=== PATIENT | female | born 1960 | race Caucasian/White ===

== ENCOUNTER 2021-03-06 06:29 | Day surgery (SDC) | payer MEDICARE, MEDICAID ==
[~2021-03-06] VITALS: Ht 175.3 cm; Wt 84.5 kg
[2021-03-06] MEDS ORDERED: LIDOCAINE 2% 30 ML JELLY TP ONE (06:30)
[2021-03-06] MEDS ORDERED: ALBUTEROL SULFATE 2.5 MG/0.5 ML NEB SOLUTION NEB ONE (06:30)
[2021-03-06] MEDS ORDERED: BENZOCAINE 20% 50 MCG/SPRAY 57 GM TP ONE (06:30)
[2021-03-06] MEDS ORDERED: LIDOCAINE 4% 50 ML SOLUTION TP ONE (06:30)
[2021-03-06] MEDS ORDERED: SODIUM CHLORIDE 0.9% 1,000 ML ONE (07:07)
[2021-03-06 07:09] LABS: COVID AG,FIA SOURCE NASOPHARYNGEAL
[2021-03-06] MEDS ORDERED: SODIUM CHLORIDE 0.9% 1,000 ML IV ONE (07:30)
[2021-03-06] MEDS ORDERED: HYDR-4031 PO (08:33)
[2021-03-06] MEDS ORDERED: MEMA5 PO (08:33)
[2021-03-06] MEDS ORDERED: DULO60CA98 PO (08:33)
[2021-03-06] MEDS ORDERED: BUPR100SR PO (08:33)
[2021-03-06] MEDS ORDERED: MONT-35 PO (08:33)
[2021-03-06] MEDS ORDERED: BENZ1TAB10 PO (08:33)
[2021-03-06] MEDS ORDERED: FAMO20 PO (08:33)
[2021-03-06] MEDS ORDERED: LITH300CRT PO (08:33)
[2021-03-06] MEDS ORDERED: FentaNYL CITRATE PF 100 MCG/2 ML VIAL ONE (09:27)
[2021-03-06] MEDS ORDERED: MIDAZOLAM HCL 5 MG/ML VIAL ONE (09:28)
[2021-03-06] MEDS ORDERED: MethylPREDNISolone SOD SUCC 125 MG/2 ML VIAL ONE (09:41)
[2021-03-06] MEDS ORDERED: MethylPREDNISolone SOD SUCC 125 MG/2 ML VIAL IVP ONE (10:15)
[2021-03-06] MEDS ORDERED: OXYGEN THERAPY IH SCH (20:00)
== END 2021-03-06 12:20 | disposition home or self-care (01) ==
LOC: SURGERY 06:29
PROVIDERS: ATTEND Internal Medicine Critical Care Medicine
DX: J38.4 Edema of larynx (principal); B37.0 Candidal stomatitis; J43.9 Emphysema, unspecified; Z88.0 Allergy status to penicillin; Z90.81 Acquired absence of spleen; Z79.899 Other long term (current) drug therapy; Z98.890 Other specified postprocedural states; G43.909 Migraine, unspecified, not intractable, without status migrainosus
CPT/HCPCS: 31623; 31624; 71045; 87015; 87070; 87101; 87205; 87206; 87220; 87426; 88108; 88184; 88185; 88312; C9803; J2250; J2930; J3010; J7030; J7613; Z7610